=== PATIENT | female | born 1950 | race Caucasian/White ===

== ENCOUNTER 2017-01-15 19:12 | Emergency (ER) | payer MEDICARE ==
[~2017-01-15] VITALS: Ht 162.6 cm; Wt 58.0 kg
[~2017-01-15 19:12] MED LIST: CALCIUM500 M1 PO; EFFEXOR75 MG PO; FOLIC ACID1 MG PO; IRON325 ( 65 PO; LOVENOX100 MG/ML SQ; MULTIVITAMIN1 TAB PO; NORCO 5/3251 TAB PO; OMEPRAZOLE20 MG PO; PAMELOR PO; PEMETREXED; ROXANOL PO; SIMVASTATIN40 MG PO; [UNRECOGNIZED DRUG - OTHER]
[2017-01-15] MEDS ORDERED: NORCO 5-325 TA1 EACH PO (22:41)
== END 2017-01-15 23:10 ==
LOC: EDMED 19:12
DX: S43.101A Unspecified dislocation of right acromioclavicular joint, initial encounter (principal); X50.1XXA Overexertion from prolonged static or awkward postures, initial encounter; Y93.K1 Activity, walking an animal; Y92.096 Garden or yard of other non-institutional residence as the place of occurrence of the external cause; Y99.8 Other external cause status